=== PATIENT | male | born 1990 | race Caucasian/White ===

== ENCOUNTER 2021-01-01 18:42 | Emergency (ER) | payer OTHER, SELFPAY ==
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
[2021-01-01 18:45] VITALS: BP 155/76; PULSE 66; RESP 20; TEMP 36.4; O2SAT 100
--- NOTE | 2021-01-01 19:12 | PC.NURSE ---
Spoke with infectious disease nurseSonja, need to order HIV, Hep C antibody and Hep B antibody
[2021-01-01] MEDS: AMOXICILLIN/CLAVULANATE K 875-125 MG TAB 1 TABLET PO (19:50)
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
[2021-01-01 20:17] VITALS: BP 138/77; PULSE 60; RESP 16; O2SAT 99
[2021-01-01 20:51] LABS: HIV 1/2 Ab P24 Ag Result Negative (Negative)
[2021-01-01 20:57] LABS: Hepatitis B Surface Anti Res Positive
[2021-01-01 20:58] LABS: Hepatitis C Virus Antibody Negative (Negative)
== END 2021-01-01 20:19 | disposition home or self-care (01) ==
PROVIDERS: Emergency Medicine Emergency Medical Services; Emergency Provider Emergency Medicine; PCP Internal Medicine
DX: S61.256A Open bite of right little finger without damage to nail, initial encounter (principal); Y04.1XXA Assault by human bite, initial encounter
CPT/HCPCS: 36415; 73140; 86703; 86706; 86803; 99283; A9270; G0432